=== PATIENT | female | born 1990 | race Caucasian/White ===

== ENCOUNTER 2017-05-22 12:11 | Emergency (ER) | payer SELFPAY ==
[2017-05-22 12:33] VITALS: BP 121/78; PULSE 73; TEMP 97.7; BMI 19.3
== END 2017-05-22 14:05 | disposition left against medical advice (07) ==
LOC: JERFT 12:11
DX: Z53.21 Procedure and treatment not carried out due to patient leaving prior to being seen by health care provider (principal)
CPT/HCPCS: 99281-25

== ENCOUNTER 2024-07-04 16:24 | Emergency (ER) | payer BC ==
[2024-07-04 16:33] VITALS: BP 113/77; PULSE 75; RESP 20; TEMP 98.4; BMI 19.6
[2024-07-04 17:42] LABS: ABSOLUTE IMMATURE GRANULOCYTES 0.03 x10^3/uL (0.0-0.031); BASOPHILS # 0.02 x10^3/uL (0.01-0.08); EOSINOPHIL % 0.3 % (0.7-5.8); EOSINOPHILS # 0.03 x10^3/uL (0.04-0.36); HEMATOCRIT 39.6 % (34.1-44.9); HEMOGLOBIN 12.8 g/dL (11.2-15.7); MCHC 32.3 g/dl (32.2-35.5); MEAN CELL VOLUME 98.5 fl (79.4-94.8); MEAN PLT VOLUME 8.8 fl (9.4-12.3); MONOCYTE # 0.92 x10^3/uL (0.24-0.86); MONOCYTE % 8.6 % (4.7-12.5); PLATELET COUNT # 362 x10^3/uL (182-369); RDW 12.5 % (12.1-16.8)
[2024-07-04] MEDS ORDERED: ACETAMINOPHEN 325 MG TABLET (FP) ONE (17:45)
[2024-07-04] MEDS: ACETAMINOPHEN 500 MG TABLET (FP) PO ONE (17:57)
[2024-07-04 18:10] LABS: POTASSIUM 4.1 mmol/L (3.5-5.1)
[2024-07-04 18:12] LABS: CALCIUM 8.9 mg/dL (8.5-10.1)
[2024-07-04 18:13] LABS: ALBUMIN 3.9 g/dl (3.4-5.0); BLOOD UREA NITROGEN 14.2 mg/dL (7-18)
[2024-07-04 18:16] LABS: CREATININE 0.7 mg/dL (0.55-1.3)
[2024-07-04 18:17] LABS: BILIRUBIN,TOTAL 0.4 mg/dL (0.2-1); TOT PROT 7.4 g/dl (6.4-8.2)
== END 2024-07-04 18:31 | disposition home or self-care (01) ==
LOC: JER 16:24
DX: R07.2 Precordial pain (principal)
CPT/HCPCS: 0241U-QW; 36415; 71046-TC-FY; 80053; 84484; 84703; 85025; 93005; 93010; 99285-25